=== PATIENT | female | born 1995 | race Caucasian/White ===

== ENCOUNTER 2017-06-17 16:17 | Inpatient (IN) | payer OTHER ==
[~2017-06-17] VITALS: Ht 177.8 cm; Wt 133.8 kg
--- NOTE | 2017-06-17 17:21 | ED SKIN/ALLERGY COMPLAINT ---
History of Present Illness General Chief Complaint: Skin Rash/ Abcess Stated Complaint: CYST ON STOMACH Source: patient Exam Limitations: no limitations Vital Signs & Intake/Output Vital Signs & Intake/Output Vital Signs Date Time Temp Pulse Resp B/P B/P Pulse O2 O2 Flow FiO2 Mean Ox Delivery Rate 06/17 2240 98.0 74 18 130/63 100 06/17 1953 98.5 64 20 135/61 99 06/17 1622 97.3 109 16 149/100 98 Room Air ED Intake and Output 06/18 0000 06/17 1200 Intake Total 0 Output Total Balance 0 Intake, Oral 0 Patient 295 lb Weight Weight Reported by Patient Measurement Method Allergies Coded Allergies: No Known Allergies (06/17/17) Triage Note: PT STATES SHE HAS AN ABCESS UNDER HER ABD. PT STATES SHE IS 7 MONTHS . PT STATES SHE HAS BEEN PUTTING HOT COMPRESSES ON THE AREA FOR THE PAST FEW DAYS. Triage Nurses Notes Reviewed? yes Onset: Gradual Duration: day(s): Timing: recent history Severity: moderate Location: torso : Yes Patient currently breastfeeds: No HPI: 21-year-old female 7 months presents to emergency department complaining of redness and swelling to lower abdomen. Patient states that 3 days ago she noticed a painful pimple to right lower abdomen. Pimple was increasing in size and pain. Today after work she noticed redness spreading to left side of abdomen and pain is increasing. Patient notes some discharge to pimple on right lower abdomen. Patient has no history of abscess or cellulitis. The patient denies fevers, chills, abdominal pain, nausea, vomiting, diarrhea, dysuria, vaginal bleeding/discharge. (Samantha Colorado) Past History Travel History Traveled to [place] past 21 day No Medical History Any Pertinent Medical History? none Surgical History Surgical History: non-contributory Psychosocial History What is your primary language Panamanian Tobacco Use: Never used ETOH Use: denies use Illicit Drug Use: denies illicit drug use Family History Hx Contributory? No (Samantha [place]) Review of Systems Review of Systems Constitutional: Reports: no symptoms. EENTM: Reports: no symptoms. Respiratory: Reports: no symptoms. Cardiovascular: Reports: no symptoms. GI: Reports: no symptoms. Genitourinary: Reports: no symptoms. Musculoskeletal: Reports: no symptoms. Skin: Reports: see HPI. Neurological/Psychological: Reports: no symptoms. Hematologic/Endocrine: Reports: no symptoms. Immunologic/Allergic: Reports: no symptoms. All Other Systems: Reviewed and Negative (Lacey BARAHONA,Samantha Pack) Physical Exam Physical Exam General Appearance: well developed/nourished, no apparent distress, alert, awake Head: atraumatic, normal appearance Eyes: Bilateral: normal appearance. Ears, Nose, Throat: hearing grossly normal Neck: normal inspection, supple, full range of motion Respiratory: normal breath sounds, no respiratory distress, lungs clear Cardiovascular: regular rate/rhythm Gastrointestinal: normal bowel sounds, soft, non-tender, no organomegaly, ertythema, warmth, and superficial tenderness to skin of bilateral lower abdomen with areas of fluctuance Back: normal inspection, normal range of motion Extremities: normal inspection Neurologic/Psych: awake, alert, oriented x 3 Skin: see erythema of bilateral lower abdomen as described above (Samantha [place]) Progress Differential Diagnosis: abscess/cellulitis, allergic reaction, contact dermatitis, urticaria Plan of Care: Orders Procedure Date/time Status Regular Diet 06/18 B Active CBC WITHOUT DIFFERENTIAL 06/18 06 Active BASIC ELECTROLYTES PLUS BUN&CR 06/18 06 Active URINALYSIS 06/18 0006 Active Regular Diet 06/17 D Complete TRUNK AREA CULTURE 06/17 2358 Active Pathway - chart 06/17 2234 Active House Staff 06/17 2234 Active Patient Data 06/17 2234 Active Code Status 06/17 2234 Active Patient Data 06/17 2038 Active Saline Lock 06/17 2028 Active Misc Message 06/17 2028 Active ED Holding Orders 06/17 2028 Active Admit to inpatient 06/17 2028 Active Vital Signs 06/17 2028 Active Code Status 06/17 2028 Complete Intake & Output 06/17 1853 Active BLOOD CULTURE 06/17 1750 Active COMPREHENSIVE METABOLIC PANEL 06/17 1750 Complete CBC WITHOUT DIFFERENTIAL 06/17 175 Complete US-SOFT TISSUES OF HEAD & NECK 06/17 UNK Active VTE Mechanical Prophylaxis 06/17 UNK Active Vital Signs 06/17 UNK Active Current Medications Sig/Dixon Start time Last Medication Dose Stop Time Status Admin Cefazolin Sodium 1,000 MG Q8H 06/18 0200 AC 06/18 (Kefzol-Ancef Inj) 0156 Acetaminophen 650 MG Q6 06/17 2359 AC 06/18 (Tylenol) 0033 Heparin Sodium 5,000 UNIT Q8 06/17 2305 AC (Porcine) Laboratory Tests 06/17/17 1827: Anion Gap 14, Estimated GFR > 60, BUN/Creatinine Ratio 14.0, Glucose 83, Calcium 9.2, Total Bilirubin 0.3, AST 12 L, ALT 28, Alkaline Phosphatase 91, Total Protein 6.7, Albumin 3.6, Globulin 3.1, Albumin/Globulin Ratio 1.2, CBC w Diff MAN DIFF ORDERED, RBC 4.15 L, MCV 89.4, MCH 28.9, MCHC 32.3 L, RDW 13.0, MPV 8.4, Gran % 78.7 H, Lymphocytes % 15.9 L, Monocytes % 4.6, Eosinophils % 0.5, Basophils % 0.3, Absolute Granulocytes 13.6 H, Segmented Neutrophils 77 H, Absolute Lymphocytes 2.7, Lymphocytes 21, Monocytes 2, Absolute Monocytes 0.8 H , Absolute Eosinophils 0.1, Absolute Basophils 0, Platelet Estimate ADEQUATE, Normocytic RBCs VERIFIED, Normochromic RBCs VERIFIED, Fld Total RBCs Counted 100 Microbiology 06/17 2349 TRUNK: Culture & Sensitivity - RECD 06/17 2349 TRUNK: Gram Stain - RECD 06/17 183 BLOOD: Blood Culture - RECD 06/17 182 BLOOD: Blood Culture - RECD Patient given IV Ancef for cellulitis. Labs reveal leukocytosis of 17.3. Patient reports that her infection has been spreading significantly today. Significant portion of patient's abdomen with cellulitic appearance. This patient will require IV antibiotics given severity of patient's infection and her current . Dr. Delacruz present to see and evaluate patient who agrees with this plan. Discussed this patient with hospitalist Dr. Morillo. Discussed with patient with Dr. Vega who will consult patient from OB/ CONCERT MANAGER stand point. Discussed this patient with Dr. Ortiz who will evaluate the patient. (Lacey BARAHONA,Samantha Pack) Departure Departure Disposition: STILL A PATIENT Condition: Stable Clinical Impression Primary Impression: Cellulitis Qualifiers: Site of cellulitis: trunk Site of cellulitis of trunk: abdominal wall Qualified Code: L03.311 - Cellulitis of abdominal wall Referrals: Unknown (PCP/Family) Departure Forms: Customer Survey General Discharge Information Admission Note Spoke With: Ilia MD,Aartee Documentation of Exam: Documentation of any treatments & extenuating circumstances including Concerns Regarding Discharge (functional status, medication knowledge or non-compliance, living conditions, etc.) that warrant an admission rather than observation: [ Cellulitis of abdomen with leukocytosis requiring IV antibiotics, repeat labs, ultrasound, surgical consult, 7 months , CLOTH SECONDS SORTER consult, premature discharge would be medically unsafe.] (Lacey BARAHONA,Samantha Pack) PA/STAMP CLASSIFIER Co-Sign Statement Statement: ED Attending supervision documentation- [x] I saw and evaluated the patient. I have also reviewed all the pertinent lab results and diagnostic results. I agree with the findings and the plan of care as documented in the PA's/STAMP CLASSIFIER's documentation. 06/17/17, 20:05pm.... pt with extensive panniculitis with possible 1-2cm carbuncle subcutanceously. mildly tender to palpation. wbc 17,000. pt merits iv abx, close evaluation. would consider u/s in am to consider need for drainage/ surgical consult [] I have reviewed the ED Record and agree with the PA's/STAMP CLASSIFIER's documentation. [] Additions or exceptions (if any) to the PAs/STAMP CLASSIFIER's note and plan are summarized below: [] (Nubia PAYNE,Fortino Mcclure)
[2017-06-17 18:48] LABS: ABSOLUTE BASOPHIL COUNT 0 /CUMM (0.0-0.2); ABSOLUTE EOSINOPHIL COUNT 0.1 /CUMM (0.0-0.7); ABSOLUTE GRANULOCYTE CT 13.6 /CUMM (1.4-6.5); ABSOLUTE LYMPH COUNT 2.7 /CUMM (1.2-3.4); ABSOLUTE MONOCYTE COUNT 0.8 /CUMM (0.10-0.60); BASOPHIL % 0.3 % (0.0-2.0); EOSINOPHIL % 0.5 % (0-5); GRANULOCYTE % 78.7 % (42.2-75.2); MEAN CORPUSCULAR HGB 28.9 PG (27.0-31.0); MEAN CORPUSCULAR HGB CONC 32.3 G/DL (33.0-37.0); MEAN CORPUSCULAR VOLUME 89.4 FL (81.0-99.0); MEAN PLATELET VOLUME 8.4 FL (7.4-10.4); PLATELET COUNT 312 /CUMM (130-400); RED BLOOD CELL CT 4.15 /CUMM (4.20-5.40); WHITE BLOOD CELL COUNT 17.3 /CUMM (4.8-10.8)
--- NOTE | 2017-06-17 20:57 | History & Physical ---
Boubacar PAYNE,[facility] 06/17/172054: General Information and HPI MD Statement: I have seen and personally examined DANNY BALDERRAMA and documented this H&P. The patient is a 21 year old F who presented with a patient stated chief complaint of [CELLULITIS]. Source of Information: patient History of Present Illness: 21 year old currently 31 weeks pregnany with a recent UTI x2 weeks ago treated with po abx for 1 week presenting for worsening redness and pain of her lower abd. Pt states her sx started sunday and she noticed a small skin colored pimple/bump. Pt States that the bump then got bigger and more painful. She started warm compresses. On sunday she started neosporin and states that the bump got a little bigger and more painful. Yesterday thepatient states thatshehadthe most pain yet. She states she went today and worked 8 hours and noticed yellow pus like discharge for the first time. The patient left work early today andcame to the ED. She denies any injuries or animal bites to the area. She does wear tight jeans. She denies fevers, chills, cp, abd pain, sob, n /v or changes in elimination. Allergies/Medications Allergies: Coded Allergies: No Known Allergies (06/17/17) Past History Travel History Traveled to [place] past 21 day No Surgical History Surgical History: non-contributory Past Family/Social History Psychosocial History Smoking Status: Never Smoked ETOH Use: denies use Illicit Drug Use: denies illicit drug use Review of Systems Review of Systems Constitutional: Reports: no symptoms. Cardiovascular: Reports: no symptoms. Respiratory: Reports: no symptoms. GI: Reports: no symptoms. Genitourinary: Reports: no symptoms. Musculoskeletal: Reports: no symptoms. Skin: Reports: see HPI, erythema. Exam & Diagnostic Data Last 24 Hrs of Vital Signs/I&O Vital Signs Date Time Temp Pulse Resp B/P B/P Pulse O2 O2 Flow FiO2 Mean Ox Delivery Rate 06/17 2240 98.0 74 18 130/63 100 06/17 1954 98.5 64 20 135/61 99 06/17 1622 97.3 109 16 149/100 98 Room Air Physical Exam General Appearance Alert, Oriented X3, Cooperative, very anxious. worried about possible I+D., obese Skin diffuse erythema of lower abd fold. 7x3cm ?abscess of the right medial abd fold., 3x2cm flutuance mass. diffuse paniculitis of lower abd Cardiovascular Regular Rate, Normal S1, Normal S2 Lungs Clear to Auscultation, Normal Air Movement Abdomen Normal Bowel Sounds, Soft, No Tenderness Extremities no inguinal lymphadenopathy, trace pedal edema Vascular 2+ radial pulses Last 24 Hrs of Labs/Dano: Laboratory Tests 06/17/171826: Anion Gap 14, Estimated GFR > 60, BUN/Creatinine Ratio 14.0, Glucose 83, Calcium 9.2, Total Bilirubin 0.3, AST 12 L, ALT 28, Alkaline Phosphatase 91, Total Protein 6.7, Albumin 3.6, Globulin 3.1, Albumin/Globulin Ratio 1.2, CBC w Diff MAN DIFF ORDERED, RBC 4.15 L, MCV 89.4, MCH 28.9, MCHC 32.3 L, RDW 13.0, MPV 8.4, Gran % 78.7 H, Lymphocytes % 15.9 L, Monocytes % 4.6, Eosinophils % 0.5, Basophils % 0.3, Absolute Granulocytes 13.6 H, Segmented Neutrophils 77 H, Absolute Lymphocytes 2.7, Lymphocytes 21, Monocytes 2, Absolute Monocytes 0.8 H , Absolute Eosinophils 0.1, Absolute Basophils 0, Platelet Estimate ADEQUATE, Normocytic RBCs VERIFIED, Normochromic RBCs VERIFIED, Fld Total RBCs Counted 100 Microbiology 06/17 1836 BLOOD: Blood Culture - RECD 06/17 1826 BLOOD: Blood Culture - RECD Assessment/Plan Assessment: A: 21 year old currently 31 weeks pregnany obese with a recent UTI x2 weeks ago treated with po abx for 1 week presenting for cellulitis and abscess of lower abd fold P: #abd abscess / cellulitis WBC17.3 s/p I +D with 30cc drainage. -cont cefazolin -f/u us to assess if any possible collection -pain control -f/u surgery recs -f/u blood cx # -obgyn consult -cont vitamins #FULL CODE #DVT prophylaxis -heparin As Ranked By This Provider Problem List: 1. Cellulitis Qualifiers Site of cellulitis: trunk Site of cellulitis of trunk: abdominal wall Qualified Code: L03.311 - Cellulitis of abdominal wall 2. Abscess Core Measures/Misc (01/28) Acute Coronary Syndrome ACS Diagnosis: No Congestive Heart Failure Congestive Heart Failure Diagnosis No Cerebrovascular Accident CVA/TIA Diagnosis: No VTE (View Protocol) VTE Risk Factors Acute Medical Illness No Mechanical VTE Prophylaxis d/t Other No VTE Pharm Prophylaxis d/t NA PharmProphylax ordered Sepsis (View protocol) Sepsis Present: No Radha Morrell MD 06/18/17 0241: Resident Review Statement Resident Statement: examined this patient, discussed with [employer] compliance internship, agreed with [employer] compliance internship, discussed with family Other Findings: Ms. Balderrama is 21 year old female , 7 month with no significant past medical history except obesity who presented with chief complaint of lower abdomen pain, redness, discharge pimple. Patient reported that on Sunday she felt skin colored pimple in the suprapubic area, denied recent shaving, insect bites, trauma to the area. On he started to apply Neosporin ointment and hot compress however pain persists. On Sunday patient noticed pus discharge, clean it and cover it. Today she went to walk, started to feel severe pain and decided to come to ED for evaluation. Patient denied animal or insect bite, fever, chills, abdominal pain, nausea vomiting, or leg with urination, fraternal bleeding. On admission Vital signs 97.3 temperature, pulse 109, blood pressure 149/100, respiratory rate 16 with saturation 98% Physical exam significant for distended abdomen, suprapubic area redness, on the skin fold there is 3 x 2 cm fluctuating lesion, tender to touch, superficial ulceration, no discharge or bleeding. No inguinal lymphadenopathy. Otherwise exam is on significant. Labs significant for leukocytosis of 15.3 with left shift no bandemia, electrolytes within normal Problem list #Cellulitis #Abscess # Plan -Admit to general medical floor -Vitals every shift -Cefazolin IV -Surgical intervention for I&D -Formal surgical consultation in a.m. -Formal ROLL UP MACHINE OPERATOR consultation in a.m. -Ultrasound of soft tissue to lower abdomen to evaluate the extent of the abscess -Acetaminophen for pain -Heparin subcutaneous -Code full -Regular Eli Morillo 06/18/17 0357: Attending MD Review Statement Attending Statement Attending MD Statement: examined this patient, discuss w/resident/PA/GEOLOGY TECHNICIAN, agreed w/resident/PA/GEOLOGY TECHNICIAN, reviewed EMR data (avail), reviewed images, amended to note Attending Assessment/Plan: CC: Small bump on abdomen PMH: None Patient came to ER for redness, pain on her abdominal wall and a small bump she noticed which worsened over last few days. She called her ROLL UP MACHINE OPERATOR who suggested to put warm compresses and use Neosporin, she was doing that for 2 days but swelling was getting worse and it appeared pus was developing inside. The pain was more throbbing in nature and intolerable. This morning she noticed some pus discharge coming out and she cleaned it and dressed it and went to work liters during the day her pain was so severe that she had to come to ER. No insect bites or trauma or shaving in that area, patient wears tight clothing, it may be irritating her abdomen. She is 31 weeks . UTI 2 weeks back. Vitals: T max 98.5, once 109, RR 20, blood pressure 135/61, saturating 99% on room air On exam: A O 3, cooperative, obese, no acute distress, neck supple, JVD normal, no lymphadenopathy, mucosa moist, no focal neurological deficit, no dependent edema, no obvious skin rashes or inflammation CVS: S1-S2, RRR. RS: Clear to auscultate bilaterally. Abdomen: Gravid uterus, Panniculitis, abscesses 2 X 3 cm diameter right side, tenderness and fluctuation present, no discharge Labs: WBC 17.3, hemoglobin 12.0, hematocrit 37.0, platelets 312, neutrophils 78% , BMP, LFT unremarkable Assessment and plan , 31 week , 21-year-old woman presented in ER for worsening redness , pain in lower abdominal wall and small bump developed over 2-3 days now more painful, throbbing in nature and discharging was this morning. On examination she is found to havePanniculitis, abscesses 2 X 3 cm diameter right side, tenderness and fluctuation present, no discharge. Patient may require incision and drainage so surgery was called. ROLL UP MACHINE OPERATOR was informed as well. Surgical PA saw the patient and she performed I&D. The area was packed. Given the extent of cellulitis and nature of abscess on the abdominal wall, it be evaluated with ultrasound for any deeper collections. + Abdominal wall abscess S/P incision and drainage and packing of wound + 31 week - Admit to inpatient - Continue IV cefazolin - Continue adequate pain control - Careful for any medication use (given ) - ROLL UP MACHINE OPERATOR consult - Follow-up surgical recommendation - Follow-up blood cultures - DVT prophylaxis
--- NOTE | 2017-06-17 23:52 | Cons- General Surgery ---
Corey Medley 06/17/17 2352: General Information and HPI Consulting Request Date of Consult: 06/17/17 Requested By: Eli Morillo MD Reason for Consult: Cellulitis Source of Information: patient History of Present Illness: This is a 21 year-old 30 weeks gestation female who presents with a 4 day history of a progressively worsening raised bump and redness in her lower abdomen. She describes a burning sensation and pain with movement and palpation. She states she applied warm compresses, neosporin and diaper rash cream without relief. She states she worked 8 hours today and noticed yellow drainage stained on the gauze she had applied over her bump. She denies any fever, chills, chest pain, nausea, vomiting or previous skin infections. She reports a recent UTI 2 weeks that was treated with a one week course of oral antibotics. Allergies/Medications Allergies: Coded Allergies: No Known Allergies (06/17/17) Current Medications: Current Medications Sig/Dixon Start time Last Medication Dose Route Stop Time Status Admin Acetaminophen 0 .STK-MED ONE 06/18 0028 DC PO Acetaminophen 650 MG Q6 06/17 2359 AC 06/18 PO 0033 Acetaminophen 0 .STK-MED ONE 06/17 1901 DC PO Acetaminophen 650 MG ONCE ONE 06/17 1800 DC / PO 06/17 1801 1815 Cefazolin Sodium 1,000 MG Q8H 06/18 0200 AC IV Cefazolin Sodium 0 .STK-MED ONE 06/17 1901 DC .ROUTE Cefazolin Sodium 1,000 MG ONCE ONE 06/17 1800 DC / IV 06/17 1801 1845 Heparin Sodium 5,000 UNIT Q8 06/17 2305 AC (Porcine) SC Lidocaine 20 ML ONCE ONE 06/17 2315 DC / IJ 06/17 2316 2346 Lidocaine 0 .STK-MED ONE 06/17 2307 DC .ROUTE Past History Surgical History Pertinent Surgical History: non-contributory Psychosocial History Smoking Status: Never Smoked ETOH Use: denies use Illicit Drug Use: denies illicit drug use Employment History Employment: Employed Profession/Employer: [email or web address] Review of Systems Review of Systems: Constitutional: Reports: no symptoms. Cardiovascular: Reports: no symptoms. Respiratory: Reports: no symptoms. GI: Reports: no symptoms. Genitourinary: Reports: no symptoms. Musculoskeletal: Reports: no symptoms. Skin: Reports: see HPI. Exam & Diagnostic Data Vital Signs and I&O Vital Signs Date Time Temp Pulse Resp B/P B/P Pulse O2 O2 Flow FiO2 Mean Ox Delivery Rate 06/17 2240 98.0 74 18 130/63 100 06/17 1953 98.5 64 20 135/61 99 06/17 1622 97.3 109 16 149/100 98 Room Air Intake & Output 06/18 0806/18 0000 06/17 1600 06/17 0806/17 0000 06/16 1600 Intake Total 0 Output Total Balance 0 Intake, Oral 0 Patient 295 lb Weight Weight Reported by Patient Measurement Method Physical Exam: General: Resting comfortably on ER stretcher with her father, appears anxious Cardiac: S1S2 noted, RRR Lungs: CTAB Abdomen: Soft and obese with 20 cm x 10 cm area of erythema extending from the right lateral lower quadrant to the left medial aspect with a soft, flucuent, raised, irregular 3 cm x 2.5 cm abscess with skin breakdown, no entry point or spontanous drainage noted, area marcated Ext: No edema or calf tenderness B/L Last 24 Hours of Labs: Laboratory Tests 06/17 1827 Chemistry Sodium (137 - 145 mmol/L) 143 Potassium (3.5 - 5.1 mmol/L) 3.9 Chloride (98 - 107 mmol/L) 105 Carbon Dioxide (22 - 30 mmol/L) 24 Anion Gap (5 - 16) 14 BUN (7 - 17 mg/dL) 7 Creatinine (0.5 - 1.0 mg/dL) 0.5 Estimated GFR (>60 ml/min) > 60 BUN/Creatinine Ratio (7 - 25 %) 14.0 Glucose (65 - 99 mg/dL) 83 Calcium (8.4 - 10.2 mg/dL) 9.2 Total Bilirubin (0.2 - 1.3 mg/dL) 0.3 AST (14 - 36 U/L) 12 L ALT (9 - 52 U/L) 28 Alkaline Phosphatase (<127 U/L) 91 Total Protein (6.3 - 8.2 g/dL) 6.7 Albumin (3.5 - 5.0 g/dL) 3.6 Globulin (1.9 - 4.2 gm/dL) 3.1 Albumin/Globulin Ratio (1.1 - 2.2 %) 1.2 Hematology CBC w Diff MAN DIFF ORDERED WBC (4.8 - 10.8 /CUMM) 17.3 H RBC (4.20 - 5.40 /CUMM) 4.15 L Hgb (12.0 - 16.0 G/DL) 12.0 Hct (37 - 47 %) 37.0 MCV (81.0 - 99.0 FL) 89.4 MCH (27.0 - 31.0 PG) 28.9 MCHC (33.0 - 37.0 G/DL) 32.3 L RDW (11.5 - 14.5 %) 13.0 Plt Count (130 - 400 /CUMM) 312 MPV (7.4 - 10.4 FL) 8.4 Gran % (42.2 - 75.2 %) 78.7 H Lymphocytes % (20.5 - 51.1 %) 15.9 L Monocytes % (1.7 - 9.3 %) 4.6 Eosinophils % (0 - 5 %) 0.5 Basophils % (0.0 - 2.0 %) 0.3 Absolute Granulocytes (1.4 - 6.5 /CUMM) 13.6 H Segmented Neutrophils (42.2 - 75.2 %) 77 H Absolute Lymphocytes (1.2 - 3.4 /CUMM) 2.7 Lymphocytes (20.5 - 51.1 %) 21 Monocytes (1.7 - 9.3 %) 2 Absolute Monocytes (0.10 - 0.60 /CUMM) 0.8 H Absolute Eosinophils (0.0 - 0.7 /CUMM) 0.1 Absolute Basophils (0.0 - 0.2 /CUMM) 0 Platelet Estimate (ADEQUATE) ADEQUATE Normocytic RBCs VERIFIED Normochromic RBCs VERIFIED Other Body Source Fld Total RBCs Counted (%) 100 Assessment/Plan Assessment/Plan This is a 21 year-old 30 weeks gestation female who presents with lower abdominal wall cellulitis with abscess Requires I&D of abscess Pain control as needed Follow up wound cx Continue vitamins All other medical management per medicine D/w Dr. Ortiz Procedure preformed: I&D of right-sided abscess Patient was placed in supine position. Right lower quadrant 3 cm x 2.5 cm abscess was prepped and drapped in steril fashion. 10 cc of 1% Lidocain was infected under the skin for local anesthetic. An 11 blade scalpel was used to make a 1 cm incision over the area of flutuance. There was purulent drainage and an instrument was used to break up loculations. Roughly 30 cc of pus was drained and wound culture was obtained. The area was then irrigated with 20 cc of sterile saline. and packed with 1/2 iodoform packing. Dry dressing was applied. Patient tolerated procedure well. Consult Acknowledgment - Thank you for your consult request. Dirk Ortiz MD 06/18/17 1126: Assessment/Plan Consult Acknowledgment - Thank you for your consult request. Attending MD Review Statement Attending Statement Attending MD Statement: discuss w/resident/PA/SHIELD INSTALLER Attending Assessment/Plan: incision and drainage of abscess perfomed by PA. Management of cellulitis per primary team.
--- NOTE | 2017-06-18 03:59 | Admission Certification ---
Admission Certification Certification Statement - As attending physician, I certify that at the time of - admission, based on clinical presentation, severity of - symptoms, need for further diagnostic testing and - therapeutic interventions, and risk of adverse outcomes - without in-hospital treatment, in my clinical assessment, - this patient requires an acute hospital stay for a minimum - of two nights or longer. I have also considered psychsocial - factors such as support system, advanced age, financial - issues, cognitive issues, and failed out-patient treatments, - past re-admission history, safety of patient, and lack of - compliance as applicable. Specific rationale supporting this admission is: abscess on abdominal wall
--- NOTE | 2017-06-18 07:28 | PN- Housestaff ---
Subjective Follow-up For: Cellulitis with abscess Subjective: Patient is seen and examined at bedside. She does endorse chills but no fevers. She denies any increased pain on her incised and drained abdominal abscess area. She denies any abdominal pain or contractions. Review of Systems Constitutional: Reports: no symptoms. Objective Last 24 Hrs of Vital Signs/I&O Vital Signs Date Time Temp Pulse Resp B/P B/P Pulse O2 O2 Flow FiO2 Mean Ox Delivery Rate 06/18 899 98.8 71 18 155/72 99 Room Air 06/18 0615 97.4 67 18 118/60 98 Room Air 06/17 2240 98.0 74 18 130/63 100 06/17 1954 98.5 64 20 135/61 99 06/17 1622 97.3 109 16 149/100 98 Room Air Intake & Output 06/18 1600 06/18 0800 06/18 0000 Intake Total 0 Output Total Balance 0 Intake, Oral 0 Patient 133.81 kg Weight Weight Reported by Patient Measurement Method Physical Exam General Appearance: Alert, Oriented X3, Cooperative Other Physical Findings: skin: Intact dressing, with packed incised wound, at the anterior abdominal area , no obvious active bleed or purulent discharge. diffuse paniculitis of lower abd Cardiovascular Regular Rate, Normal S1, Normal S2 Lungs Clear to Auscultation, Normal Air Movement Abdomen Normal Bowel Sounds, Soft, No Tenderness Extremities no inguinal lymphadenopathy, trace pedal edema Vascular 2+ radial pulses Current Medications: Current Medications Sig/Dixon Start time Last Medication Dose Route Stop Time Status Admin Acetaminophen 0 .STK-MED ONE 06/18 0634 DC PO Acetaminophen 0 .STK-MED ONE 06/18 0028 DC PO Acetaminophen 650 MG Q6 06/17 2359 AC 06/18 PO 1216 Acetaminophen 0 .STK-MED ONE 06/17 1901 DC PO Acetaminophen 650 MG ONCE ONE 06/17 1800 DC 06/17 PO 06/17 1801 1815 Cefazolin Sodium 0 .STK-MED ONE 06/18 0856 DC .ROUTE Cefazolin Sodium 1,000 MG Q8H 06/18 0200 AC 06/18 IV 0900 Cefazolin Sodium 0 .STK-MED ONE 06/18 0134 DC .ROUTE Cefazolin Sodium 0 .STK-MED ONE 06/17 1901 DC .ROUTE Cefazolin Sodium 1,000 MG ONCE ONE 06/17 1800 DC 06/17 IV 06/17 1801 1845 Heparin Sodium 5,000 UNIT Q8 06/17 2305 AC (Porcine) SC Lidocaine 20 ML ONCE ONE 06/17 2315 DC 06/17 IJ 06/17 2316 2346 Lidocaine 0 .STK-MED ONE 06/17 2307 DC .ROUTE Last 24 Hrs of Lab/Dano Results Last 24 Hrs of Labs/Mics: Laboratory Tests 06/18/17 0625: Anion Gap 12, Estimated GFR > 60, BUN/Creatinine Ratio 20.0, CBC w Diff NO MAN DIFF REQ, RBC 3.79 L, MCV 89.3, MCH 29.8, MCHC 33.4, RDW 13.0, MPV 8.9, Gran % 77.8 H, Lymphocytes % 16.3 L, Monocytes % 4.9, Eosinophils % 0.5, Basophils % 0.5, Absolute Granulocytes 11.1 H, Absolute Lymphocytes 2.3, Absolute Monocytes 0.7 H, Absolute Eosinophils 0.1, Absolute Basophils 0.1 06/17/171826: Anion Gap 14, Estimated GFR > 60, BUN/Creatinine Ratio 14.0, Glucose 83, Calcium 9.2, Total Bilirubin 0.3, AST 12 L, ALT 28, Alkaline Phosphatase 91, Total Protein 6.7, Albumin 3.6, Globulin 3.1, Albumin/Globulin Ratio 1.2, CBC w Diff MAN DIFF ORDERED, RBC 4.15 L, MCV 89.4, MCH 28.9, MCHC 32.3 L, RDW 13.0, MPV 8.4, Gran % 78.7 H, Lymphocytes % 15.9 L, Monocytes % 4.6, Eosinophils % 0.5, Basophils % 0.3, Absolute Granulocytes 13.6 H, Segmented Neutrophils 77 H, Absolute Lymphocytes 2.7, Lymphocytes 21, Monocytes 2, Absolute Monocytes 0.8 H , Absolute Eosinophils 0.1, Absolute Basophils 0, Platelet Estimate ADEQUATE, Normocytic RBCs VERIFIED, Normochromic RBCs VERIFIED, Fld Total RBCs Counted 100 Microbiology 06/17 2349 TRUNK: Culture & Sensitivity - RECD 06/17 2349 TRUNK: Gram Stain - RECD 06/17 1836 BLOOD: Blood Culture - RES 06/17 1826 BLOOD: Blood Culture - RES Assessment/Plan Assessment: 21 year old female , 7 month with no significant past medical history except obesity who presented with chief complaint of lower abdomen pain, redness, and a pimple. Self managed at home with compresses and Neosporin with worsening progression affected area leading to increased erythema, swelling and drainage. On admission Vital signs 97.3 temperature, pulse 109, blood pressure 149/100, respiratory rate 16 with saturation 98% Physical exam significant for distended abdomen, suprapubic area redness, on the skin fold there is 3 x 2 cm fluctuating lesion, tender to touch, superficial ulceration, no discharge or bleeding. No inguinal lymphadenopathy. Otherwise exam is on significant. Labs significant for leukocytosis of 15.3 with left shift no bandemia, electrolytes within normal Problem list #Cellulitis #Abscess # Plan * Status post I&D with half inch Iodo packing * New cefazolin 1 g every 8 for treatment of cellulitis * Follow-up on abdominal ultrasound to chest for soft tissue and gas involvement * -Vitals every shift * Awaiting Formal [employer] consultation in a.m. * Acetaminophen for pain, cognizant of her , will refrain from NSAIDs * Heparin subcutaneous * Code full * Regular Problem List: 1. Cellulitis 2. Abscess Pain Ratin Pain Location: ABDOMINAL Pain Goal: Remain pain free Pain Plan: PER PATHWAY Tomorrow's Labs & Rationales: CBC-INFECTION BEP:
[2017-06-18 08:17] LABS: ABSOLUTE BASOPHIL COUNT 0.1 /CUMM (0.0-0.2); ABSOLUTE EOSINOPHIL COUNT 0.1 /CUMM (0.0-0.7); ABSOLUTE GRANULOCYTE CT 11.1 /CUMM (1.4-6.5); ABSOLUTE LYMPH COUNT 2.3 /CUMM (1.2-3.4); ABSOLUTE MONOCYTE COUNT 0.7 /CUMM (0.10-0.60); BASOPHIL % 0.5 % (0.0-2.0); EOSINOPHIL % 0.5 % (0-5); GRANULOCYTE % 77.8 % (42.2-75.2); HEMATOCRIT 33.9 % (37-47); MEAN CORPUSCULAR HGB 29.8 PG (27.0-31.0); MEAN CORPUSCULAR HGB CONC 33.4 G/DL (33.0-37.0); MEAN CORPUSCULAR VOLUME 89.3 FL (81.0-99.0); MEAN PLATELET VOLUME 8.9 FL (7.4-10.4); PLATELET COUNT 269 /CUMM (130-400); RED BLOOD CELL CT 3.79 /CUMM (4.20-5.40); WHITE BLOOD CELL COUNT 14.3 /CUMM (4.8-10.8)
--- NOTE | 2017-06-18 08:57 | PN- General Surgery ---
See Addendum Subjective Subjective: still with some pain at i&d site, but "much better" and less tender. hungry. afebrile. no n/v/cp/sob Objective Vital Signs and I&Os Vital Signs Date Time Temp Pulse Resp B/P B/P Pulse O2 O2 Flow FiO2 Mean Ox Delivery Rate 06/18 614 97.4 67 18 118/60 98 Room Air 06/17 2240 98.0 74 18 130/63 100 06/17 1954 98.5 64 20 135/61 99 06/17 1622 97.3 109 16 149/100 98 Room Air Intake & Output 06/18 1600 06/18 0800 06/18 0000 06/17 1600 06/17 0800 06/17 0000 Intake Total 0 Output Total Balance 0 Intake, Oral 0 Patient 295 lb Weight Weight Reported by Patient Measurement Method Physical Exam: gen-nad card-s1s2 pulm- no audible wheeze abd- dressing w bloody staining- removed. erythema persists, though seems to be receeding from marked borders. small wick of packing removed, wound flushed w NS and probed w sterile qtip, no additional purulence or fluctuance noted. region adjacent to wound remains indurated. repacked w wick of packing strip. Current Medications: Current Medications Sig/Dixon Start time Last Medication Dose Route Stop Time Status Admin Acetaminophen 0 .STK-MED ONE 06/18 0634 DC PO Acetaminophen 0 .STK-MED ONE 06/18 0028 DC PO Acetaminophen 650 MG Q6 06/17 2359 AC 06/18 PO 0631 Acetaminophen 0 .STK-MED ONE 06/17 1901 DC PO Acetaminophen 650 MG ONCE ONE 06/17 1800 DC 06/17 PO 06/17 1801 1815 Cefazolin Sodium 1,000 MG Q8H 06/18 0200 AC 06/18 IV 0156 Cefazolin Sodium 0 .STK-MED ONE 06/18 0134 DC .ROUTE Cefazolin Sodium 0 .STK-MED ONE 06/17 1901 DC .ROUTE Cefazolin Sodium 1,000 MG ONCE ONE 06/17 1800 DC 06/17 IV 06/17 1801 1845 Heparin Sodium 5,000 UNIT Q8 06/17 2305 AC (Porcine) SC Lidocaine 20 ML ONCE ONE 06/17 2315 DC 06/17 IJ 06/17 2316 2346 Lidocaine 0 .STK-MED ONE 06/17 2307 DC .ROUTE Results Last 48 Hours of Labs: Laboratory Tests 06/18 06/17 0608 1827 Chemistry Sodium (137 - 145 mmol/L) 140 143 Potassium (3.5 - 5.1 mmol/L) 4.3 3.9 Chloride (98 - 107 mmol/L) 106 105 Carbon Dioxide (22 - 30 mmol/L) 22 24 Anion Gap (5 - 16) 12 14 BUN (7 - 17 mg/dL) 8 7 Creatinine (0.5 - 1.0 mg/dL) 0.4 L 0.5 Estimated GFR (>60 ml/min) > 60 > 60 BUN/Creatinine Ratio (7 - 25 %) 20.0 14.0 Glucose (65 - 99 mg/dL) 83 Calcium (8.4 - 10.2 mg/dL) 9.2 Total Bilirubin (0.2 - 1.3 mg/dL) 0.3 AST (14 - 36 U/L) 12 L ALT (9 - 52 U/L) 28 Alkaline Phosphatase (<127 U/L) 91 Total Protein (6.3 - 8.2 g/dL) 6.7 Albumin (3.5 - 5.0 g/dL) 3.6 Globulin (1.9 - 4.2 gm/dL) 3.1 Albumin/Globulin Ratio (1.1 - 2.2 %) 1.2 Hematology CBC w Diff NO MAN DIFF REQ MAN DIFF ORDERED WBC (4.8 - 10.8 /CUMM) 14.3 H 17.3 H RBC (4.20 - 5.40 /CUMM) 3.79 L 4.15 L Hgb (12.0 - 16.0 G/DL) 11.3 L 12.0 Hct (37 - 47 %) 33.9 L 37.0 MCV (81.0 - 99.0 FL) 89.3 89.4 MCH (27.0 - 31.0 PG) 29.8 28.9 MCHC (33.0 - 37.0 G/DL) 33.4 32.3 L RDW (11.5 - 14.5 %) 13.0 13.0 Plt Count (130 - 400 /CUMM) 269 312 MPV (7.4 - 10.4 FL) 8.9 8.4 Gran % (42.2 - 75.2 %) 77.8 H 78.7 H Lymphocytes % (20.5 - 51.1 %) 16.3 L 15.9 L Monocytes % (1.7 - 9.3 %) 4.9 4.6 Eosinophils % (0 - 5 %) 0.5 0.5 Basophils % (0.0 - 2.0 %) 0.5 0.3 Absolute Granulocytes (1.4 - 6.5 /CUMM) 11.1 H 13.6 H Segmented Neutrophils (42.2 - 75.2 %) 77 H Absolute Lymphocytes (1.2 - 3.4 /CUMM) 2.3 2.7 Lymphocytes (20.5 - 51.1 %) 21 Monocytes (1.7 - 9.3 %) 2 Absolute Monocytes (0.10 - 0.60 /CUMM) 0.7 H 0.8 H Absolute Eosinophils (0.0 - 0.7 /CUMM) 0.1 0.1 Absolute Basophils (0.0 - 0.2 /CUMM) 0.1 0 Platelet Estimate (ADEQUATE) ADEQUATE Normocytic RBCs VERIFIED Normochromic RBCs VERIFIED Other Body Source Fld Total RBCs Counted (%) 100 Assessment/Plan Assessment/Plan A- 21yoF 30wk with superfical skin abscess right lower abdomen sp beside I&D, on iv abx with improving erythema and improving leukocytosis, stable. P- daily dressing changes watch erythema, induration cont abx medical mgmt per primary team will dw attending Core Measures Venous Thromboembolism VTE Risk Factors Acute Medical Illness No Mechanical VTE Prophylaxis d/t Other No VTE Pharm Prophylaxis d/t NA PharmProphylax ordered
--- NOTE | 2017-06-18 11:55 | PN- Att Addend ---
See Addendum Attending Addendum Attending Brief Note Patient seen and examined, Feels overall better. The redness and induration on the abd wall is improved. Pain is also better. Vital Signs Date Time Temp Pulse Resp B/P B/P Pulse O2 O2 Flow FiO2 Mean Ox Delivery Rate 06/18 0900 98.8 71 18 155/72 99 Room Air 06/18 0615 97.4 67 18 118/60 98 Room Air 06/17 2240 98.0 74 18 130/63 100 06/17 1954 98.5 64 20 135/61 99 06/17 1622 97.3 109 16 149/100 98 Room Air on exam; aox3, nad. cv; s1,s2, rrr resp; clear abd; soft, some tenderness on the abd, + I&D with packing. ext; no edema Laboratory Tests 06/18 06/17 0625 1827 Chemistry Sodium (137 - 145 mmol/L) 140 143 Potassium (3.5 - 5.1 mmol/L) 4.3 3.9 Chloride (98 - 107 mmol/L) 106 105 Carbon Dioxide (22 - 30 mmol/L) 22 24 Anion Gap (5 - 16) 12 14 BUN (7 - 17 mg/dL) 8 7 Creatinine (0.5 - 1.0 mg/dL) 0.4 L 0.5 Estimated GFR (>60 ml/min) > 60 > 60 BUN/Creatinine Ratio (7 - 25 %) 20.0 14.0 Glucose (65 - 99 mg/dL) 83 Calcium (8.4 - 10.2 mg/dL) 9.2 Total Bilirubin (0.2 - 1.3 mg/dL) 0.3 AST (14 - 36 U/L) 12 L ALT (9 - 52 U/L) 28 Alkaline Phosphatase (<127 U/L) 91 Total Protein (6.3 - 8.2 g/dL) 6.7 Albumin (3.5 - 5.0 g/dL) 3.6 Globulin (1.9 - 4.2 gm/dL) 3.1 Albumin/Globulin Ratio (1.1 - 2.2 %) 1.2 Hematology CBC w Diff NO MAN DIFF REQ MAN DIFF ORDERED WBC (4.8 - 10.8 /CUMM) 14.3 H 17.3 H RBC (4.20 - 5.40 /CUMM) 3.79 L 4.15 L Hgb (12.0 - 16.0 G/DL) 11.3 L 12.0 Hct (37 - 47 %) 33.9 L 37.0 MCV (81.0 - 99.0 FL) 89.3 89.4 MCH (27.0 - 31.0 PG) 29.8 28.9 MCHC (33.0 - 37.0 G/DL) 33.4 32.3 L RDW (11.5 - 14.5 %) 13.0 13.0 Plt Count (130 - 400 /CUMM) 269 312 MPV (7.4 - 10.4 FL) 8.9 8.4 Gran % (42.2 - 75.2 %) 77.8 H 78.7 H Lymphocytes % (20.5 - 51.1 %) 16.3 L 15.9 L Monocytes % (1.7 - 9.3 %) 4.9 4.6 Eosinophils % (0 - 5 %) 0.5 0.5 Basophils % (0.0 - 2.0 %) 0.5 0.3 Absolute Granulocytes (1.4 - 6.5 /CUMM) 11.1 H 13.6 H Segmented Neutrophils (42.2 - 75.2 %) 77 H Absolute Lymphocytes (1.2 - 3.4 /CUMM) 2.3 2.7 Lymphocytes (20.5 - 51.1 %) 21 Monocytes (1.7 - 9.3 %) 2 Absolute Monocytes (0.10 - 0.60 /CUMM) 0.7 H 0.8 H Absolute Eosinophils (0.0 - 0.7 /CUMM) 0.1 0.1 Absolute Basophils (0.0 - 0.2 /CUMM) 0.1 0 Platelet Estimate (ADEQUATE) ADEQUATE Normocytic RBCs VERIFIED Normochromic RBCs VERIFIED Other Body Source Fld Total RBCs Counted (%) 100 A/P; 21-year-old female who is dirty. admitted with abdominal wall abscess and cellulitis. Patient has received incision and drainage and has a packing in. Currently treated with IV cefazolin. Will follow-up on the cultures from the fold. Will continue the same and emetics for now. [employer] has been consulted. Please follow-up evaluation. Patient has Tylenol ordered for pain. DVT prophylaxis: Heparin subcutaneous.
--- NOTE | 2017-06-18 14:18 | ULTRASOUND REPORT ---
EXAMINATION: US ABDOMEN LIMITED CLINICAL INFORMATION: Abscess. Cellulitis. Abdominal wall abscess. COMPARISON: None TECHNIQUE: Real-time imaging of the right anterior abdominal wall. FINDINGS: There is diffuse cutaneous and subcutaneous soft tissue thickening seen in the soft tissues of the right lower quadrant in region of patient's erythema. Prominent superficial venous varicosities are noted and appear intact with color Doppler imaging. In region of patient's incision and drainage, a irregularly marginated ill-defined hypoechoic phlegmonous collection is noted, measuring approximately 2.3 x 0.9 cm in size, paralleling the superficial skin surface. This demonstrates multiple low-level internal echoes and no defined margin. No extension into the anterior abdominal wall musculature is seen. IMPRESSION: Extensive cutaneous and subcutaneous soft tissue edema and hyperemia seen, consistent with clinical history of cellulitis. Focal small phlegmonous collection is seen in region of incision and drainage without residual definable abscess collection seen.
[2017-06-18 15:28] VITALS: BP 148/72
[2017-06-18 16:00] VITALS: BP 148/72
--- NOTE | 2017-06-18 17:51 | PN- OBGYN ---
Surgical Brief Attending Note Brief Attending Note: Patient is a 21 year old female at 30 weeks with complicated by obesity and recent I and D for abdominal wall abcess. Patient states uncomplicated however noted abnormal GCT(unkown results ) I was called for assessment however patient was already s/p I and D from Surgical team. Denies headaches Denies visual changes Abdomen. Soft and erythema noted. Abdominal dressing noted on wound. A/P ID. Continue on cefazolin and await culture results. Consideration for wound changes with honey and or bacitracin for improvement in wound environment. WBC was 17 and now 14. Follow up cultures. Start on probiotics to reduce antibiotic associated diarrea and joan. Warm compresses to area as well. Ob. Avoid nsaid class of drug for pain however may use tylenol. Patient states FHR checked last evenign. Of note patient with elevated BP but no symptoms of preeclampsia. Recommend PC ratio and if greater than 0.2 than recommend 24 hour urine. This as BP high of 150 and diastolic 80s. She is obese and nulliparous and at risk for preeclampsia. If she is with GDM than would be an additional risk. heart check q shift. Nutrition. Started on vitamin C for wound healing. Started on for nutirtional support. My concern is that her nutrition is poor given the large cellulitis noted on her abdominal wall. VTE risk reduction with alps while in bed and ambulation. As with infection and she is at risk. Flu season at peak at present. Influenza vaccine justified for patient. If any questions please contact Dr Jordan
[2017-06-18 22:52] VITALS: BP 129/56
[2017-06-19 06:24] VITALS: BP 118/64
--- NOTE | 2017-06-19 07:44 | PN- General Surgery ---
See Addendum Subjective Subjective: No events overnight. Patient states to be feeling much better today. Currently denies any pain at I&D site. Denies any nausea, vomiting, fevers, chills, chest pain, or SOB. Tolerating her diet without issue. Objective Vital Signs and I&Os Vital Signs Date Time Temp Pulse Resp B/P B/P Pulse O2 O2 Flow FiO2 Mean Ox Delivery Rate 06/19 623 98.4 65 20 118/64 98 Room Air 06/18 2252 97.9 64 18 129/56 96 Room Air / 1600 98.0 66 20 148/72 97 Room Air / 1528 98.0 66 20 148/72 97 Room Air / 1330 99.0 68 16 136/70 99 06/18 0900 98.8 71 18 155/72 99 Room Air Intake & Output 06/19 0800 02/06 0000 06/18 1600 06/18 0800 02/ 0000 / 1600 Intake Total 60 500 0 Output Total Balance 60 500 0 Intake, Oral 60 500 0 Patient 295 lb 295 lb Weight Weight Reported by Patient Reported by Patient Measurement Method Physical Exam: Afebrile, VSS. Cardiac: RRR Pulmonary: CTAB Abdominal: Erythema receding within marked outline, mostly surrounding I&D site. Packing removed with seropurulent drainage. Wound irrigated and probed with sterile Q-tip. No purulence expressed. No fluctuance. + surrounding induration. Repacked with plain packing. Dry sterile dressing applied. Assessment/Plan Assessment/Plan A- 21 y/o female who is 30 weeks admitted with superfical skin abscess to R lower abdomen s/p beside I&D, on iv abx with improving erythema and improving leukocytosis, stable. P- Follow up am labs Continue daily dressing changes Monitor erythema, induration Continue abx Medical mgmt per primary team Will d/w attending Core Measures Venous Thromboembolism VTE Risk Factors Acute Medical Illness No Mechanical VTE Prophylaxis d/t Other No VTE Pharm Prophylaxis d/t NA PharmProphylax ordered
--- NOTE | 2017-06-19 08:07 | PN- Housestaff ---
Doe PAYNE,Adiel 06/19/17 0807: Subjective Follow-up For: abcess Subjective: Afebrile o/n. Endorses decreased pain from drained abscess. Review of Systems Constitutional: Reports: no symptoms. Objective Last 24 Hrs of Vital Signs/I&O Vital Signs Date Time Temp Pulse Resp B/P B/P Pulse O2 O2 Flow FiO2 Mean Ox Delivery Rate 06/19 623 98.4 65 20 118/64 98 Room Air 06/18 2252 97.9 64 18 129/56 96 Room Air Intake & Output 06/19 1600 06/19 0800 06/19 0000 Intake Total 120 500 Output Total Balance 120 500 Intake, Oral 120 500 Physical Exam General Appearance: Alert, Oriented X3, Cooperative Other Physical Findings: skin: Intact dressing, with packed incised wound, at the anterior abdominal area , no obvious active bleed or purulent discharge. diffuse paniculitis of lower abd Cardiovascular Regular Rate, Normal S1, Normal S2 Lungs Clear to Auscultation, Normal Air Movement Abdomen Normal Bowel Sounds, Soft, No Tenderness Extremities no inguinal lymphadenopathy, trace pedal edema Vascular 2+ radial pulses Current Medications: Current Medications Sig/Dixon Start time Last Medication Dose Route Stop Time Status Admin Acetaminophen 650 MG .STK-MED ONE 06/19 0535 DC PO 06/19 0536 Acetaminophen 650 MG .STK-MED ONE 06/19 0033 DC PO 06/19 0034 Acetaminophen 650 MG Q6 06/17 2359 DCD 06/19 PO 0539 Ascorbic Acid 500 MG BID 06/180 DCD 06/19 PO 0948 Cefazolin Sodium 1,000 MG Q8H 06/18 0200 DCD 06/19 IV 0948 Lactobacillus 1 CAP BID 06/18 2199 DCD 06/19 Acidophilus PO 0948 Multivitamins 1 TAB DAILY 06/18 1729 DCD PO Patient Medication 1 ED ONE 06/19 0000 NR Teaching ED 06/19 2359 Assessment/Plan Assessment: 21 year old female , 7 month with no significant past medical history except obesity who presented with chief complaint of lower abdomen pain, redness, and a pimple. Self managed at home with compresses and Neosporin with worsening progression affected area leading to increased erythema, swelling and drainage. On admission Vital signs 97.3 temperature, pulse 109, blood pressure 149/100, respiratory rate 16 with saturation 98% Physical exam significant for distended abdomen, suprapubic area redness, on the skin fold there is 3 x 2 cm fluctuating lesion, tender to touch, superficial ulceration, no discharge or bleeding. No inguinal lymphadenopathy. Otherwise exam is on significant. Labs significant for leukocytosis of 15.3 with left shift no bandemia, electrolytes within normal Problem list #Cellulitis #Abscess # Plan * Status post I&D with half inch Iodo packing * New cefazolin 1 g every 8 for treatment of cellulitis * Follow-up on abdominal ultrasound to chest for soft tissue and gas involvement * -Vitals every shift * Awaiting Formal [employer] consultation in a.m. * Acetaminophen for pain, cognizant of her , will refrain from NSAIDs * Heparin subcutaneous * Code full * Regular Problem List: 1. Cellulitis 2. Abscess Pain Ratin Pain Location: abdomen Pain Goal: Remain pain free Pain Plan: per pathway Tomorrow's Labs & Rationales: none-discharge Susan Rao MD 06/19/17 1201: Attending MD Review Statement Attending Statement Attending MD Statement: examined this patient, discuss w/resident/PA/CAROUSEL ATTENDANT, agreed w/resident/PA/CAROUSEL ATTENDANT, reviewed EMR data (avail), discussed with nursing, discussed with case mgmt, reviewed images, amended to note Attending Assessment/Plan: Patient seen and examined, doing overall better. The erythema and swelling has improved abdominal wall. Patient remains afebrile. Still had leukocytosis but clinically improved. Had been followed by surgery. She is medically stable for discharge home today. She will follow up with [employer] as an outpatient and can also follow per Dr. Ortiz in his office for a wound check next week. She should continue her vitamins.
[2017-06-19] MEDS ORDERED: CEPHALEXIN500 M3 PO ×2 (08:28→09:17)
--- NOTE | 2017-06-19 08:32 | Patient Discharge Instructions ---
Discharge Instructions General Discharge Information You were seen/treated for: CELLULITIS Special Instructions: Please finish all your antibiotics as instructed Please take probiotics (available over the counter) while you are on the antibiotics Please seek immediate medical attention if you develop fevers or increasing swellin/pain around your wound Please change dressing daily Please see your primary care physciain within 3 days Please notify your cable ferryboat operator doctor about this hospitalization and see her within 3 days Please continue taking your vitamins that were given by your cable ferryboat operator doctor You have been started a diabetic diet, please monitor your carbohydrates intake Acute Coronary Syndrome Inclusion Criteria At DC or during hospital stay patient has or had the following: Discharge Core Measures Meds if any: Prescribed or Continued at Discharge Meds if any: NOT Prescribed or Continued at Discharge Congestive Heart Failure Inclusion Criteria At DC or during hospital stay patient has or had the following: Discharge Core Measures Meds if any: Prescribed or Continued at Discharge Meds if any: NOT Prescribed or Continued at Discharge Cerebrovascular accident Inclusion Criteria At DC or during hospital stay patient has or had the following: CVA/TIA Diagnosis No Discharge Core Measures Meds if any: Prescribed or Continued at Discharge Meds if any: NOT Prescribed or Continued at Discharge Venous thromboembolism Discharge Core Measures - Per Current guidelines, there needs to be overlap - treatment for the first 5 days of Warfarin therapy. - If discharged on Warfarin prior to 5 days of - overlap therapy, the patient will need to be - assessed for post discharge needs including - *Post discharge parental anticoagulation - *Warfarin and/or parental anticoagulation education - *Follow up date to check INR post discharge Meds if any: Prescribed or Continued at Discharge Note: Overlap Therapy is Warfarin and Anticoagulant Meds if any: NOT Prescribed or Continued at Discharge
--- NOTE | 2017-06-19 08:37 | PN- OBGYN ---
Surgical Brief Attending Note Brief Attending Note: Seen and evaluated No events overnight Denies nausea nor diarrhea Denies headaches Vitals Range 118-155/70-80's Abdomen. Fundus nontender Erythema reduced from last evenings evaluation Incision site packed and size of less than 1 cm. Limited bedside ultrasound. MVP of 5 cm Cephalic presentation Posterior placenta EFW 1517 grams and 29w5d composite. BPP of 8/8. Fasting glucose of 84. A/P Para 0 with morbid obesity at 30 weeks gestation with cellulitis clinically improving. ID. Continue on IV antibiotics and once sensitivites are present than switch to PO regimen to complete 7-10 day course. Dressing changes in my opinion with either medical grade honey and or bacitracin. Probiotics recommended to reduce antibiotic associated diarrhea and or joan. Follow up CBC. Prior wbc was trending downward and she is afebrile. Ob. Limited growth is aga for gestation and fluid is normal. Testing done secondary to gestational hypertension in my opinion. Follow up PC ratio. Discussed issues of potential GDM she is awaiting a 3 hour GTT at her primary. Discussed her risks for preeclampsia. testing today is wnl. Nutritional counseling. Excess reliance on refined sugars. Works at [employer] and does state she eats the products there. Goals for reduction in refined sugars. She has a tendency for sweet and if 295 and gained 20 already per patient. Goals for less than 0.5 lb/week for remainder of . Vitamin support to continue VTE risk present so recommendations for continued ambulation If any questions contact Dr Jordan and or CBC if evidence of preelampsia.
[2017-06-19 09:48] LABS: ABSOLUTE BASOPHIL COUNT 0.1 /CUMM (0.0-0.2); ABSOLUTE EOSINOPHIL COUNT 0.1 /CUMM (0.0-0.7); ABSOLUTE GRANULOCYTE CT 11.6 /CUMM (1.4-6.5); ABSOLUTE LYMPH COUNT 2.1 /CUMM (1.2-3.4); ABSOLUTE MONOCYTE COUNT 0.4 /CUMM (0.10-0.60); BASOPHIL % 0.4 % (0.0-2.0); EOSINOPHIL % 0.5 % (0-5); GRANULOCYTE % 81.3 % (42.2-75.2); HEMATOCRIT 36.5 % (37-47); MEAN CORPUSCULAR HGB 29.6 PG (27.0-31.0); MEAN CORPUSCULAR VOLUME 89.8 FL (81.0-99.0); PLATELET COUNT 288 /CUMM (130-400); RBC DISTRIBUTION WIDTH 13.3 % (11.5-14.5); RED BLOOD CELL CT 4.07 /CUMM (4.20-5.40); WHITE BLOOD CELL COUNT 14.2 /CUMM (4.8-10.8)
--- NOTE | 2017-06-19 15:03 | Discharge Summary ---
Hospital Course Allergies: Coded Allergies: No Known Allergies (06/17/17) Discharge Instructions Medications at Discharge Discharge Medications: Start taking the following new medications: Cephalexin (Cephalexin) 500 MG CAPSULE 1 Capsule ORAL EVERY SIX HOURS Qty = 24 No Refills Comments: NOT GIVEN IN HOSPITAL (IV ABX GIVEN)
== END 2017-06-19 11:30 | DRG 383 ==
LOC: ERH 16:17 → 2NB 20:29 → ERHI 20:29 → ERH 20:54 → ENRESERV 06-18 13:24 → ENTRNSPT 06-18 14:23 → EDTRNSPTSTS 06-18 14:27 → EDTRNSPT 06-18 14:27 → 2NB 06-18 14:44 → CMPTRNSPT 06-18 15:23 → 2NB 06-19 09:57
PROVIDERS: Physician Assistant; Student in an Organized Health Care Education/Training Program
PROC: 0H97XZZ Drainage of Abdomen Skin, External Approach (ICD-10-PCS; principal; 2017-06-17)
DX: L02.211 Cutaneous abscess of abdominal wall (principal); L03.311 Cellulitis of abdominal wall; Z68.41 Body mass index [BMI] 40.0-44.9, adult; Z33.1 Pregnant state, incidental; E66.01 Morbid (severe) obesity due to excess calories
CPT/HCPCS: 2NBSP; ERO; 36415; 82436; 82570; 87040; 87070; 96374; J0690; J1644